=== PATIENT | female | born 1955 | race African-American/Black ===

== ENCOUNTER 2019-04-26 14:53 | Emergency (ER) | payer OTHER ==
[~2019-04-26] VITALS: Ht 160 cm; Wt 63.5 kg
--- NOTE | 2019-04-26 14:54 | Emergency Room Report ---
History of Present Illness General Chief Complaint: Altered Level of Consciousness Source: Medical Record, EMS Present Illness HPI 64-year-old female history of stroke history of hypertension, hyperlipidemia presents with worsening altered mental status over the past 4 days patient has become more confused unable to remember her family members names, no known aggravating or alleviating factors severity is moderate, constant worse history is limited due to patient's worsening altered mental status. Patient unable to very verbalize where she is why she is here responds to her name Allergies: Coded Allergies: No Known Allergies (Unverified , 04/26/19) Patient History Limited by: medical condition - Altered mental status Past Medical History: see triage record Reviewed Nursing Documentation: PMH: Agreed; PSxH: Agreed Nursing Documentation-PMH Past Medical History: No History, Except For Hx Cardiac Problems: No - stroke in 2018 Hx Hypertension: Yes Review of Systems All Other Systems: limited - Altered mental status Physical Exam Vital Signs Date Time Temp Pulse Resp B/P (MAP) Pulse Ox O2 Delivery O2 Flow Rate FiO2 04/26/19 14:48 98.4 96 18 154/108 (123) 99 Room Air Sp02 EP Interpretation: reviewed, normal General Appearance: no apparent distress, alert Head: normocephalic, atraumatic Eyes: bilateral eye PERRL, bilateral eye EOMI ENT: uvula midline, dry mucus membranes Neck: supple, thyroid normal, supple/symm/no masses Respiratory: lungs clear, no respiratory distress, no retraction, no accessory muscle use Cardiovascular #1: normal peripheral pulses, regular rate, rhythm, no edema, no gallop, no murmur Gastrointestinal: non tender, soft, no guarding, no rebound Musculoskeletal: normal inspection Neurologic: alert, responsive, other - Confused Psychiatric: mood/affect normal Skin: no rash, warm/dry Procedures Critical Care Time Critical Care Time Given the critical condition in which the patient arrived, the patient was immediately assessed by myself and the nurse, and cardiac monitoring initiated due to the potential for rapid decompensation of the patient's clinical condition. During the course of the patient's stay, I spent a considerable amount of time at the bedside performing serial re-evaluations of the patient's hemodynamic and clinical status because of the recognized potential threat to life or limb in this condition. I then had a chance to review not only all of the available current laboratory and radiographic studies obtained today, but I also reviewed old records available to me at the time. Additionally, any ancillary information available including histologic technician records were reviewed. Sequential vital signs were obtained. Critical Care time of 33 minutes was performed exclusive of billable procedures. Medical Decision Making Diagnostic Impression: Primary Impression: Altered level of consciousness Additional Impressions: UTI (urinary tract infection) Qualified Codes: N39.0 - Urinary tract infection, site not specified; R31.9 - Hematuria, unspecified Lactic acid acidosis ER Course 64-year-old female presents with altered mental status of unknown origin differential diagnoses includes UTI, stroke, altered mental status. Patient found to have an elevated white blood cell broad spectrum abx Patient will be transferred to [place] accepted by Dr. Owen Patient given fluid resuscitation ceftriaxone for UTI Patient remained stable Laboratory Tests Test 04/26/19 15:25 04/26/19 15:45 04/26/19 16:45 White Blood Count 20.5 K/UL (4.8-10.8) H Red Blood Count 6.26 M/UL (4.20-5.40) H Hemoglobin 17.0 G/DL (12.0-16.0) H Hematocrit 51.8 % (37.0-47.0) H Mean Corpuscular Volume 83 FL (80-99) Mean Corpuscular Hemoglobin 27.2 PG (27.0-31.0) Mean Corpuscular Hemoglobin Concent 32.9 G/DL (32.0-36.0) Red Cell Distribution Width 13.5 % (11.6-14.8) Platelet Count 388 K/UL (150-450) Mean Platelet Volume 6.4 FL (6.5-10.1) L Neutrophils (%) (Auto) % (45.0-75.0) Lymphocytes (%) (Auto) % (20.0-45.0) Monocytes (%) (Auto) % (1.0-10.0) Eosinophils (%) (Auto) % (0.0-3.0) Basophils (%) (Auto) % (0.0-2.0) Differential Total Cells Counted 100 Neutrophils % (Manual) 90 % (45-75) H Lymphocytes % (Manual) 8 % (20-45) L Monocytes % (Manual) 2 % (1-10) Eosinophils % (Manual) 0 % (0-3) Basophils % (Manual) 0 % (0-2) Band Neutrophils 0 % (0-8) Platelet Estimate Adequate Platelet Morphology Normal Red Blood Cell Morphology Normal Lactic Acid Level 3.60 mmol/L (0.4-2.0) H Pending Troponin I 0.000 ng/mL (0.000-0.056) Urine Color Yellow Urine Appearance Cloudy Urine pH 5 (4.5-8.0) Urine Specific [place] 1.025 (1.005-1.035) Urine Protein 3+ (NEGATIVE) H Urine Glucose (UA) 1+ (NEGATIVE) H Urine Ketones 3+ (NEGATIVE) H Urine Blood 1+ (NEGATIVE) H Urine Nitrite Negative (NEGATIVE) Urine Bilirubin 2+ (NEGATIVE) H Urine Ictotest Negative (NEGATIVE) Urine Urobilinogen 8 MG/DL (0.0-1.0) H Urine Leukocyte Esterase 1+ (NEGATIVE) H Urine RBC 2-4 /HPF (0 - 2) H Urine WBC 5-10 /HPF (0 - 2) H Urine Squamous Epithelial Cells Moderate /LPF (NONE/OCC) H Urine Bacteria Moderate /HPF (NONE) H Urine Mucus Many /LPF (NONE/OCC) H Sodium Level Pending Potassium Level Pending Chloride Level Pending Carbon Dioxide Level Pending Blood Urea Nitrogen Pending Creatinine Pending Estimate Glomerular Filtration Rate Pending Glucose Level Pending Calcium Level Pending Phosphorus Level Pending Magnesium Level Pending Total Bilirubin Pending Aspartate Amino Transferase (AST) Pending Alanine Aminotransferase (ALT) Pending Alkaline Phosphatase Pending Total Creatine Kinase Pending Pro-B-Type Natriuretic Peptide Pending Total Protein Pending Albumin Pending Globulin Pending Lipase Pending Thyroid Stimulating Hormone (TSH) Pending Free Thyroxine Pending Free Triiodothyronine Pending EKG Diagnostic Results EKG Time: 15:03 EP Interpretation: NSR, rate 85, QTc 473, no acute ST elevations, normal axis Rhythm Strip Diag. Results Rhythm Strip Time: 15:06 EP Interpretation: yes Rate: 88 Rhythm: NSR, no PVC's, no ectopy Chest X-Ray Diagnostic Results Chest X-Ray Diagnostic Results : Chest X-Ray Ordered: Yes # of Views/Limited/Complete: 1 View Indication: Other - Altered mental status Interpretation: no consolidation, no effusion, no pneumothorax, no acute cardiopulmonary disease Impression: No acute disease Electronically Signed by: Roosevelt Franklin MD CT/MRI/US Diagnostic Results CT/MRI/US Diagnostic Results : Impression CT head: Moderate atrophy/chronic micro vascular dz pvwm per radiology read. Last Vital Signs Date Time Temp Pulse Resp B/P (MAP) Pulse Ox O2 Delivery O2 Flow Rate FiO2 04/26/19 14:48 98.4 96 18 154/108 (123) 99 Room Air Disposition: XFER SHT-TRM HOSP Condition: Serious Evaluation Current Stage of Sepsis: Sepsis Focused Exam Allergies: Coded Allergies: No Known Allergies (Unverified , 04/26/19) Date Exam Occurred: Apr 26, 2019 Time Exam Occurred: 17:17 Laboratory Studies Laboratory Tests Test 04/26/19 15:25 04/26/19 15:45 04/26/19 16:45 White Blood Count 20.5 K/UL (4.8-10.8) H Red Blood Count 6.26 M/UL (4.20-5.40) H Hemoglobin 17.0 G/DL (12.0-16.0) H Hematocrit 51.8 % (37.0-47.0) H Mean Corpuscular Volume 83 FL (80-99) Mean Corpuscular Hemoglobin 27.2 PG (27.0-31.0) Mean Corpuscular Hemoglobin Concent 32.9 G/DL (32.0-36.0) Red Cell Distribution Width 13.5 % (11.6-14.8) Platelet Count 388 K/UL (150-450) Mean Platelet Volume 6.4 FL (6.5-10.1) L Neutrophils (%) (Auto) % (45.0-75.0) Lymphocytes (%) (Auto) % (20.0-45.0) Monocytes (%) (Auto) % (1.0-10.0) Eosinophils (%) (Auto) % (0.0-3.0) Basophils (%) (Auto) % (0.0-2.0) Differential Total Cells Counted 100 Neutrophils % (Manual) 90 % (45-75) H Lymphocytes % (Manual) 8 % (20-45) L Monocytes % (Manual) 2 % (1-10) Eosinophils % (Manual) 0 % (0-3) Basophils % (Manual) 0 % (0-2) Band Neutrophils 0 % (0-8) Platelet Estimate Adequate Platelet Morphology Normal Red Blood Cell Morphology Normal Lactic Acid Level 3.60 mmol/L (0.4-2.0) H Pending Troponin I 0.000 ng/mL (0.000-0.056) Urine Color Yellow Urine Appearance Cloudy Urine pH 5 (4.5-8.0) Urine Specific [place] 1.025 (1.005-1.035) Urine Protein 3+ (NEGATIVE) H Urine Glucose (UA) 1+ (NEGATIVE) H Urine Ketones 3+ (NEGATIVE) H Urine Blood 1+ (NEGATIVE) H Urine Nitrite Negative (NEGATIVE) Urine Bilirubin 2+ (NEGATIVE) H Urine Ictotest Negative (NEGATIVE) Urine Urobilinogen 8 MG/DL (0.0-1.0) H Urine Leukocyte Esterase 1+ (NEGATIVE) H Urine RBC 2-4 /HPF (0 - 2) H Urine WBC 5-10 /HPF (0 - 2) H Urine Squamous Epithelial Cells Moderate /LPF (NONE/OCC) H Urine Bacteria Moderate /HPF (NONE) H Urine Mucus Many /LPF (NONE/OCC) H Sodium Level Pending Potassium Level Pending Chloride Level Pending Carbon Dioxide Level Pending Blood Urea Nitrogen Pending Creatinine Pending Estimat Glomerular Filtration Rate Pending Glucose Level Pending Calcium Level Pending Phosphorus Level Pending Magnesium Level Pending Total Bilirubin Pending Aspartate Amino Transf (AST/SGOT) Pending Alanine Aminotransferase (ALT/SGPT) Pending Alkaline Phosphatase Pending Total Creatine Kinase Pending Pro-B-Type Natriuretic Peptide Pending Total Protein Pending Albumin Pending Globulin Pending Lipase Pending Thyroid Stimulating Hormone (TSH) Pending Free Thyroxine Pending Free Triiodothyronine Pending Vital Signs Last 24 Hour Vital Signs Date Time Temp Pulse Resp B/P (MAP) Pulse Ox O2 Delivery O2 Flow Rate FiO2 04/26/19 16:57 75 171/89 04/26/19 16:56 75 171/89 04/26/19 16:56 171/89 04/26/19 14:48 98.4 96 18 154/108 (123) 99 Room Air Respiratory Exam: CTA Bilaterally Cardiovascular Exam: RRR, S1, S2 Capillary Refill: Less Than 2 Seconds Peripheral Pulse: Strong Pulse Location: Radial Skin Exam: Normal CecilygoRoosevelt Fuentes MD Apr 26, 2019 14:54
[2019-04-26 15:00] VITALS: BP 164/99
--- NOTE | 2019-04-26 15:29 | NUR ---
ED Nurse Note: blood sent to lab. Pt in radiology.
--- NOTE | 2019-04-26 15:36 | NUR ---
ED Nurse Note: Pt back from radiology
[2019-04-26 15:39] LABS: HEMATOCRIT 51.8 % (37.0-47.0); MEAN CORPUSCULAR VOLUME 83 FL (80-99); PLATELET COUNT 388 K/UL (150-450); RED BLOOD COUNT 6.26 M/UL (4.20-5.40); RED CELL DISTRIBUTION WIDTH 13.5 % (11.6-14.8); WHITE BLOOD COUNT 20.5 K/UL (4.8-10.8)
--- NOTE | 2019-04-26 15:50 | NUR ---
ED Nurse Note: urine sent to lab
[2019-04-26 16:03] LABS: APPEARANCE,URINE CLOUDY; BILIRUBIN, URINE 2+ (NEGATIVE); GLUCOSE, URINE (UA) 1+ (NEGATIVE); KETONES,URINE 3+ (NEGATIVE); LEUKOCYTE ESTERASE ,URINE 1+ (NEGATIVE); NITRITE,URINE NEGATIVE (NEGATIVE); PH,URINE 5 (4.5-8.0); PROTEIN,URINE 3+ (NEGATIVE); UROBILINOGEN,URINE 8 MG/DL (0.0-1.0)
[2019-04-26 16:06] LABS: COLOR,URINE YELLOW
[2019-04-26] MEDS ORDERED: LISINOPRIL20 MG ORAL (16:14)
[2019-04-26] MEDS ORDERED: AMLODIPINE BESY10 MG ORAL (16:14)
[2019-04-26] MEDS ORDERED: METOPROLOL TART50 M1 ORAL (16:14)
[2019-04-26] MEDS ORDERED: Metoprolol Tartrate 50mg tab ORAL ONE (16:15)
[2019-04-26] MEDS ORDERED: Lisinopril 10mg tab ORAL ONE (16:15)
[2019-04-26] MEDS ORDERED: cefTRIAXone 1 GM in NS 55 ML IVPB ONE (16:15)
[2019-04-26] MEDS ORDERED: ASPIR 8181 MG ORAL (16:35)
[2019-04-26] MEDS ORDERED: ATORVASTATIN CA40 MG ORAL (16:35)
[2019-04-26] MEDS ORDERED: MELOXICAM15 MG PO (16:36)
[2019-04-26] MEDS ORDERED: PANTOPRAZOLE SO40 MG ORAL (16:36)
[2019-04-26] MEDS ORDERED: LORATADINE10 M1 PO (16:36)
[2019-04-26] MEDS ORDERED: FLUTICASONE PRO16 G1 NASAL (16:36)
[2019-04-26] MEDS ORDERED: Vancomycin 1.5gm/NS Premix 275 ML IVPB SCH (16:45)
[2019-04-26] MEDS ORDERED: Metoprolol Tartrate 50mg tab ONE (16:52)
[2019-04-26] MEDS ORDERED: Lisinopril 20mg tab ONE (16:52)
[2019-04-26] MEDS ORDERED: Lisinopril 10mg tab ONE (16:56)
[2019-04-26 17:00] VITALS: BP 164/89
[2019-04-26] MEDS ORDERED: Vancomycin 1.5gm x1 (Pts>70kg) IVPB ONE ×2 (17:00)
[2019-04-26] MEDS ORDERED: Vancomycin 1.5gm vial IVPB ONE (17:05)
--- NOTE | 2019-04-26 17:26 | NUR ---
ED Nurse Note: Report given to camille Lucia supervisor of instruction @ [facility]. ETA [phone]
[2019-04-26 18:00] LABS: ANION GAP 17 mmol/L (5-15); BLOOD UREA NITROGEN 23 mg/dL (7-18); CALCIUM 8.7 MG/DL (8.5-10.1); CARBON DIOXIDE 21 MMOL/L (21-32); CHLORIDE 107 MMOL/L (98-107); POTASSIUM 3.3 MMOL/L (3.5-5.1); SODIUM 145 MMOL/L (136-145)
[2019-04-26 18:01] LABS: ALANINE AMINOTRANSFERASE 33 U/L (12-78); ALBUMIN 2.6 G/DL (3.4-5.0); ALBUMIN/GLOBULIN RATIO 0.5 (1.0-2.7); ALKALINE PHOSPHATASE 129 U/L (46-116); ASPARTATE AMINO TRANSFERASE 45 U/L (15-37); CREATINE KINASE 23 U/L (26-140)
[2019-04-26 18:11] VITALS: BP 194/90
--- NOTE | 2019-04-26 18:11 | NUR ---
ED Nurse Note: Made ED MD aware of bp 190s systolic. He ordered two medications. Orders noted and carried out.
[2019-04-26] MEDS ORDERED: Labetalol 5mg/ml 20ml vial IV ONE ×2 (18:13→18:15)
[2019-04-26 18:30] LABS: BILIRUBIN,TOTAL 0.6 MG/DL (0.2-1.0)
--- NOTE | 2019-04-26 18:45 | NUR ---
ED Nurse Note: [facility] @ bedside. Report given to ambulance personnel. Pt being discharged with Right AC 22 g, flushed and patent. Respirations even and unlabored on room air. BP elevated now in 170s systolic. All other vital signs stable as documented.
[2019-04-26 18:48] VITALS: BP 172/81
--- NOTE | 2019-04-26 18:53 | NUR ---
ED Nurse Note: Pt discharged safely via gurney with ambulance personnel. Pt in stable condition at discharge. No acute distress noted. Pt discharging with IV
--- NOTE | 2019-04-27 08:38 | Diagnostic Imaging Report ---
Indication: Altered mental status Technique: Contiguous 5 mm thick transaxial imaging of the head obtained in a Siemens Sensation [address] scanner. Soft tissue and bone windows generated. Automatic Exposure Control was utilized. Total Dose length Product (DLP): [address] Dose Index Volume (CTDIvol): 62.7 mGy Comparison: none Findings: There is moderate prominence of the ventricles, basal cisterns, and cerebral sulci consistent with atrophy. Moderate, nonspecific, white matter hypoattenuation is noted throughout the brain consistent with chronic small vessel disease. There is no midline shift, edema, acute hemorrhage, mass effect, or abnormal extra-axial fluid collections. Bones are unremarkable. Impression: No acute intracranial bleed, mass effect or edema. Moderate atrophy of the brain. Evidence of chronic small vessel disease involving white matter tracts. The CT scanner at [facility] is accredited by the [employer] and the scans are performed using dose optimization techniques as appropriate to a performed exam including Automatic Exposure control.
--- NOTE | 2019-04-27 09:33 | Diagnostic Imaging Report ---
Indication: Dyspnea Comparison: None A single view chest radiograph was obtained. Findings: No definite infiltrate or pulmonary vascular congestion identified. The heart is relatively normal in size. The aorta is mildly calcified consistent with atherosclerotic vascular disease. The bones are osteopenic. Impression: No acute disease
== END 2019-04-26 18:48 | disposition short-term general hospital (02) ==
LOC: EDBD 14:53 → EMR 15:52
DX: R40.4 Transient alteration of awareness (principal); N39.0 Urinary tract infection, site not specified; E87.2 Acidosis; I10 Essential (primary) hypertension; Z86.73 Personal history of transient ischemic attack (TIA), and cerebral infarction without residual deficits
CPT/HCPCS: 36415; 70450; 71045; 80053; 81003; 82550; 83605; 83690; 83735; 83880; 84100; 84439; 84443; 84481; 84484; 85007; 85025; 87040; 87086; 93005; 96361; 96365; 96375; J0360; J0696; J2405; J3370; J7030; Z7502; 99291